=== PATIENT | female | born 2000 | race American Indian/Alaskan Native ===

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

== ENCOUNTER 2022-01-06 14:41 | Emergency (ER) | payer SELFPAY ==
[2022-01-06 15:38] VITALS: BP 106/65
--- NOTE | 2022-01-06 15:51 | Emergency Department Report ---
ED Recheck HPI - General Chief Complaint: Urogenital-Female Stated Complaint: STD Time Seen by Provider: 01/06/22 15:50 Source: patient Mode of arrival: Ambulatory Limitations: No Limitations - History of Present Illness Initial Comments: Patient is a 21-year-old female that comes to the ER because for years ago she was tested for gonorrhea and received a letter stating that it was negative. However, today she states she got a letter from the same place regarding those test 4 years ago that were positive. The patient has no symptoms. She has no d ischarge. She has no abdominal pain. - Related Data Previous Rx's Medication Instructions Recorded Last Taken Type Ibuprofen [Motrin] 600 mg PO Q8H PRN #30 tablet 01/18/21 Unknown Rx Allergies Allergy/AdvReac Type Severity Reaction Status Date / Time methylphenidate Allergy Nausea Verified 01/06/22 15:38 [From [employer]] ED Review of Systems ROS: Stated complaint: STD Other details as noted in HPI Comment: All other systems reviewed and negative ED Past Medical Hx - Past Medical History Previous Medical History?: Yes Additional medical history: adhd - Surgical History Past Surgical History?: No - Family History Family history: no significant - Social History Smoking Status: Never Smoker Substance Use Type: None - Medications Home Medications: Home Medications Medication Instructions Recorded Confirmed Last Taken Type Ibuprofen [Motrin] 600 mg PO Q8H PRN #30 tablet 01/18/21 Unknown Rx ED Physical Exam - General Limitations: No Limitations General appearance: alert, in no apparent distress - Head Head exam: Present: atraumatic, normocephalic - Eye Eye exam: Present: normal appearance - ENT ENT exam: Present: mucous membranes moist - Neck Neck exam: Present: normal inspection - Respiratory Respiratory exam: Present: normal lung sounds bilaterally. Absent: respiratory distress - Cardiovascular Cardiovascular Exam: Present: regular rate, normal rhythm. Absent: systolic murmur, diastolic murmur, rubs, gallop - GI/Abdominal GI/Abdominal exam: Present: soft, normal bowel sounds - Extremities Exam Extremities exam: Present: normal inspection - Back Exam Back exam: Present: normal inspection - Neurological Exam Neurological exam: Present: alert, oriented X3 - Psychiatric Psychiatric exam: Present: normal affect, normal mood - Skin Skin exam: Present: warm, dry, intact, normal color. Absent: rash ED Course Vital Signs 01/06/22 15:33 Temperature 97.7 F Pulse Rate 63 Respiratory 18 Rate Blood Pressure 106/65 [Left] O2 Sat by Pulse 100 Oximetry ED Recheck MDM - Medical Decision Making Needs wellness check with PCP or [facility] Have given her referrals. [place] being [place] [place] Vital Signs 01/06/22 15:33 Temperature 97.7 F Pulse Rate 63 Respiratory 18 Rate Blood Pressure 106/65 [Left] O2 Sat by Pulse 100 Oximetry Critical care attestation.: If time is entered above; I have spent that time in minutes in the direct care of this critically ill patient, excluding procedure time. ED Disposition Clinical Impression: Screen for STD (sexually transmitted disease) Disposition: 07 LEFT WITHOUT BEING SEEN Is pt being admited?: No Does the pt Need Aspirin: No Condition: Stable Referrals: JUANPABLO CONTE MD [Staff Physician] - 3-5 Days Time of Disposition: 15:53
== END 2022-01-06 16:10 | disposition left against medical advice (07) ==
LOC: ED 14:41
DX: Z11.3 Encounter for screening for infections with a predominantly sexual mode of transmission (principal)
CPT/HCPCS: 99281